=== PATIENT | male | born 1990 | race African-American/Black ===

== ENCOUNTER 2024-05-08 00:23 | Emergency (ER) | payer BC ==
[~2024-05-08] VITALS: Ht 195.6 cm; Wt 188.0 kg
[2024-05-08 00:26] VITALS: TEMP 98; O2SAT 99
[2024-05-08] MEDS ORDERED: METH4TAB95 MT (01:13)
[2024-05-08] MEDS ORDERED: BACL-141 MT (01:13)
[2024-05-08] MEDS ORDERED: NAPR-1074 MT (01:13)
[2024-05-08] MEDS: KETOROLAC 30MG/ML VIAL IM ONE (01:21)
[2024-05-08 01:25] VITALS: BP 178/110; PULSE 66; RESP 16; O2SAT 97
== END 2024-05-08 01:26 | disposition home or self-care (01) ==
LOC: ER 00:23
DX: M79.10 Myalgia, unspecified site (principal); M54.2 Cervicalgia; R03.0 Elevated blood-pressure reading, without diagnosis of hypertension
CPT/HCPCS: 99283; 96372; J1885